=== PATIENT | female | born 1990 | race Caucasian/White ===

== ENCOUNTER 2016-11-08 20:26 | Emergency (ER) | payer OTHER ==
--- NOTE | 2016-11-08 20:47 | ED ---
Head Injury - HPI Summary HPI Summary: 26F presents with head injury yesterday. She was hiking and she hit the top of her head on a branch. she denies any LOC. She did not have a headache till today and it is mild. She states her headache is in the front of her head. She denies any n/v. She admits to difficulty concentrating. She admits to slight photophobia. She denies any dizziness. She has had a concussion a year ago. 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 - History Of Current Complaint Chief Complaint: EDHeadInjury Stated Complaint: HEAD INJURY/HEADACHE Time Seen by Provider: 11/08/16 20:32 Pain Intensity: 2 - Allergies/Home Medications Allergies/Adverse Reactions: Allergies Allergy/AdvReac Type Severity Reaction Status Date / Time No Known Allergies Allergy Verified 11/08/16 20:30 PMH/Surg Hx/FS Hx/Imm Hx Endocrine/Hematology History: Denies: Hx Anticoagulant Therapy Cardiovascular History: Denies: Hx Hypertension Infectious Disease History: No Infectious Disease History: Denies: Traveled Outside the [place] in Last 30 Days - Family History Known Family History: Negative: Seizure Disorder - Social History Alcohol Use: Occasionally Substance Use Type: Reports: None Smoking Status (MU): Never Smoked Tobacco Review of Systems Negative: Fever Negative: Chest Pain Negative: Shortness Of Breath Positive: Headache All Other Systems Reviewed And Are Negative: Yes Physical Exam Triage Information Reviewed: Yes Vital Signs On Initial Exam: Initial Vitals Temp Pulse Resp BP Pulse Ox 97.9 F 76 16 114/79 100 11/08/16 20:29 11/08/16 20:29 11/08/16 20:29 11/08/16 20:29 11/08/16 20:29 Vital Signs Reviewed: Yes Appearance: Positive: Well-Appearing Skin: Positive: Warm, Dry Head/Face: Positive: Normal Head/Face Inspection, Other - no step off, raccoon eyes, merchant sign Eyes: Positive: Normal, EOMI, PATEL, Conjunctiva Clear ENT: Positive: Normal ENT inspection, Pharynx normal, TMs normal Respiratory/Lung Sounds: Positive: Clear to Auscultation, Breath Sounds Present Cardiovascular: Positive: Normal, RRR Neurological: Positive: Sensory/Motor Intact, Alert, Oriented to Person Place, Time, CN Intact II-III, Heel to Toe, Finger to Nose - Willie Coma Scale Best Eye Response: 4 - Spontaneous Best Motor Response: 6 - Obeys Commands Best Verbal Response: 5 - Oriented Diagnostics - Vital Signs Vital Signs Temp Pulse Resp BP Pulse Ox 11/08/16 20:29 97.9 F 76 16 114/79 100 - Laboratory Lab Statement: Any lab studies that have been ordered have been reviewed, and results considered in the medical decision making process. Head Injury Course/Dx Course Of Treatment: 26F presents with head injury yesterday. She was hiking and she hit the top of her head on a branch. she denies any LOC. She did not have a headache till today and it is mild. She states her headache is in the front of her head. She denies any n/v. She admits to difficulty concentrating. She admits to slight photophobia. She denies any dizziness. She has had a concussion a year ago. normal neuro exam. explained [place] rules to patient and that no imaging required. told to follow up with primary for management of possible concussion. patient understands and agrees with plan. - Diagnoses Differential Diagnosis/HQI/PQRI: Concussion Without LOC, Contusion, Intracranial Bleed Provider Diagnoses: Head injury Discharge - Discharge Plan Condition: Good Disposition: HOME Patient Education Materials: Head Injury (ED) Referrals: Deepa Pat NP [Primary Care Provider] - Additional Instructions: Take Tylenol or ibuprofen for headache every 6 hours Follow up with primary within 7 days Return to ED if develop vomiting, severe headache, or any new or worsening symptoms
[2016-11-08 21:05] VITALS: BP 103/69
== END 2016-11-08 21:03 | disposition home or self-care (01) ==
LOC: ED 20:26
DX: S09.90XA Unspecified injury of head, initial encounter (principal); W22.8XXA Striking against or struck by other objects, initial encounter; Y93.01 Activity, walking, marching and hiking; Y92.9 Unspecified place or not applicable; Y92.89 Other specified places as the place of occurrence of the external cause
CPT/HCPCS: 99281